=== PATIENT | male | born 1970 | race Caucasian/White ===

== ENCOUNTER 2016-06-16 19:36 | Emergency (ER) | payer SELFPAY ==
[~2016-06-16] VITALS: Ht 182.9 cm; Wt 125.0 kg
[~2016-06-16 19:36] MED LIST: CARB200T16 PO; CEPH250 PO; LORTA5 PO; TAMS0.4C67 PO
[2016-06-16 19:38] VITALS: BP 123/96; PULSE 90; RESP 16; TEMP 98.3; O2SAT 100
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
[2016-06-16] MEDS ORDERED: TEGR200T PO (19:43)
[2016-06-16] MEDS ORDERED: PERC5TAB12 PO (20:51)
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
[2016-06-16] MEDS ORDERED: TETANUS/DIPHTHERIA TOXOID ADULT 0.5 ML VIAL IM ONE (21:00)
[2016-06-16] MEDS ORDERED: oxyCODONE/ACETAMINOPHEN 5 MG/325 MG TAB PO ONE (21:00)
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
== END 2016-06-16 21:31 | disposition home or self-care (01) ==
LOC: NEPK 19:36
DX: S42.031A Displaced fracture of lateral end of right clavicle, initial encounter for closed fracture (principal); Z23 Encounter for immunization; Z87.19 Personal history of other diseases of the digestive system; Z87.448 Personal history of other diseases of urinary system; Z86.69 Personal history of other diseases of the nervous system and sense organs; V28.0XXA Motorcycle driver injured in noncollision transport accident in nontraffic accident, initial encounter; Y92.410 Unspecified street and highway as the place of occurrence of the external cause
CPT/HCPCS: 73030; 90471; 90714

== ENCOUNTER 2017-08-07 10:31 | Emergency (ER) | payer BC ==
[~2017-08-07] VITALS: Ht 182.9 cm; Wt 120.0 kg
[~2017-08-07 10:31] MED LIST changes: -CARB200T16 PO; -CEPH250 PO; -LORTA5 PO; +PERC5TAB12 PO; -TAMS0.4C67 PO; +TEGR200T PO
[2017-08-07 10:35] VITALS: BP 132/79; PULSE 88; RESP 18; TEMP 99; O2SAT 97
[2017-08-07] MEDS ORDERED: CRANCAP2 PO (10:53)
[2017-08-07] MEDS ORDERED: LIDOCAINE HCL 1% PF 30 ML VIAL INFIL ONE (11:00)
--- NOTE | 2017-08-07 11:31 | RADRPT ---
EXAM DATE: 08/07/2017 11:24 AM EDT AGE/SEX: 47 years / Male INDICATIONS: Pain in left hand, third digit. Patient was trimming his hedges and lacerated his finge r today. CLINICAL DATA: This is the patient's initial encounter. Patient reports that signs and symptoms have been present for 1 day and indicates a pain score of 10/10. MEDICAL/SURGICAL HISTORY: None. None. COMPARISON: No prior [facility] exams available for comparison. FINDINGS: 3 views of the left third digit demonstrate a minimally displaced fracture of the distal tuft of the third digit with adjacent skin disruption. The bones demonstrate normal mineralization. No foreign kimmy dy identified. CONCLUSION: Open fracture involving the third digit distal aspect of the tuft. No radiopaque foreign body. Electronically signed by: Daria Hyde MD 08/07/2017 11:30 AM EDT
--- NOTE | 2017-08-07 11:42 | PD ---
Physical Exam Date Seen by Provider: Aug 07, 2017 Narrative This patient has basically amputated the tip of his left middle finger with a brand-new hedge tremor. Data Data Last Documented VS Vital Signs Date Time Temp Pulse Resp B/P (MAP) Pulse Ox O2 Delivery O2 Flow Rate FiO2 08/07/17 10:35 99.0 88 18 132/79 (96) 97 Orders Orders Finger (Txp8eat) (08/07/17 ) Lidocaine Pf 1% Inj (Xylocaine-Mpf 1% In (08/07/17 11:00) MDM Supervised Visit with BETTYE: Yes Narrative Course I, Dr. Strauss, have reviewed the advance practice practitioner's documentation and am in agreement, met with the patient face to face, made the diagnosis, and the medical decision making was done by me. *My assessment and Findings: The tip of the left middle finger distal to the laceration is dusky. There is no sensation. Last Impressions Finger X-Ray 08/07/17 0000 Signed Impressions: CONCLUSION: Open fracture involving the third digit distal aspect of the tuft. No radiopaqu e foreign body. He will be placed on antibiotics prophylactically. His tetanus is up-to-date. Amena Strauss MD Aug 07, 2017 11:42
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
[2017-08-07] MEDS ORDERED: CEPH-460 PO (12:32)
[2017-08-07] MEDS ORDERED: NORC5TAB PO (12:32)
[2017-08-07] MEDS ORDERED: IBUP1TAB7 PO (12:32)
[2017-08-07] MEDS ORDERED: IBUPROFEN 800 MG TAB PO ONE (12:45)
== END 2017-08-07 13:10 | disposition home or self-care (01) ==
LOC: NEPD 10:31
DX: S68.123A Partial traumatic metacarpophalangeal amputation of left middle finger, initial encounter (principal); W27.8XXA Contact with other nonpowered hand tool, initial encounter
CPT/HCPCS: 12001; 73140; 96365; 99284; J0690

== ENCOUNTER 2017-08-18 17:23 | Emergency (ER) | payer BC ==
[~2017-08-18] VITALS: Ht 182.9 cm; Wt 120.0 kg
[~2017-08-18 17:23] MED LIST changes: +CEPH-460 PO; +CRANCAP2 PO; +IBUP1TAB7 PO; +NORC5TAB PO; -PERC5TAB12 PO
[2017-08-18 17:26] VITALS: BP 118/65; PULSE 84; RESP 16; TEMP 98.6; O2SAT 98
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
== END 2017-08-18 18:08 | disposition home or self-care (01) ==
LOC: NEPK 17:23
DX: Z48.02 Encounter for removal of sutures (principal); Z79.899 Other long term (current) drug therapy; Z72.0 Tobacco use
CPT/HCPCS: 99281